=== PATIENT | female | born 1985 | race Caucasian/White ===

== ENCOUNTER 2020-08-24 11:48 | Emergency (ER) | payer BC ==
[2020-08-24 12:53] LABS: BASO % 0.4 % (0-2.0); EOS % 2.6 % (0-4.5); HEMATOCRIT 25.3 % (32.4-45.2); HEMOGLOBIN 8.2 GM/dl (10.7-15.3); LYMPH % 16.4 % (8-40); MCH 25.2 pg (25.7-33.7); MCHC 32.6 g/dl (32.0-36.0); MEAN CELL VOLUME 77.4 fl (80-96); MEAN PLT VOLUME 10.1 fl (7.5-11.1); MONO % 4.7 % (3.8-10.2); NEUT % 75.9 % (42.8-82.8); PLATELET COUNT 290 K/MM3 (134-434); RBC 3.27 M/mm3 (3.60-5.2); RDW 15.8 % (11.6-15.6); WHITE BLOOD COUNT 10.1 K/mm3 (4.0-10.8)
[2020-08-24 12:59] VITALS: TEMP 100.1; BMI 36.3
[2020-08-24 13:08] LABS: ACTIVATED PTT 23.9 SECONDS (25.2-36.5)
[2020-08-24 13:09] LABS: ALBUMIN 3.7 g/dl (3.4-5.0); BILIRUBIN,TOTAL 0.4 mg/dl (0.2-1); CALCIUM 8.8 mg/dl (8.5-10); CREATININE 0.7 mg/dl (0.55-1.3); POTASSIUM 3.6 mmol/L (3.5-5.1); TOT PROT 6.8 g/dl (6.4-8.2)
[2020-08-24 13:13] LABS: INR 1.03 (0.82-1.09); PROTHROMBIN TIME (PATIENT) 11.5 SEC (10.2-13.0)
[2020-08-24 15:11] LABS: PLATELET ESTIMATE ADEQUATE
[2020-08-24 17:57] VITALS: BP 135/84; PULSE 88
[2020-08-24] MEDS ORDERED: ACETAMINOPHEN 325 MG TABLET (FP) PO ONE (18:32)
[2020-08-24] MEDS ORDERED: AZITHROMYCIN 250 MG TABLET PO ONE ×2 (19:01→19:02)
[2020-08-24] MEDS ORDERED: AZITHROMYCIN 250 MG TABLET ONE (19:08)
== END 2020-08-24 19:15 | disposition home or self-care (01) ==
LOC: FER 11:48
DX: R06.02 Shortness of breath (principal); R07.1 Chest pain on breathing
CPT/HCPCS: 36415; 71046-TC-FY; 71275-TC; 80053; 82550; 84484; 84703; 85025; 85379; 85610; 85730; 93005; 99285-25; C9803; Q9967; U0003

== ENCOUNTER 2021-03-16 15:31 | Emergency (ER) | payer BC ==
[2021-03-16 15:50] VITALS: BP 112/71; PULSE 98; TEMP 99.2; BMI 35.5
== END 2021-03-16 17:31 | disposition home or self-care (01) ==
LOC: FER 15:31
DX: M67.823 Other specified disorders of tendon, right elbow (principal)
CPT/HCPCS: 73070-TC-RT-FY; 99283-25

== ENCOUNTER 2021-07-17 17:36 | Inpatient (IN) | payer BC ==
[2021-07-17 18:59] LABS: MONO % 7.3 % (3.8-10.2)
[2021-07-17 19:23] LABS: RBC 3.75 M/mm3 (3.60-5.2); WHITE BLOOD COUNT 8.2 K/mm3 (4.0-10.8)
[2021-07-17 19:24] LABS: HEMATOCRIT 29.3 % (32.4-45.2); HEMOGLOBIN 9.6 GM/dl (10.7-15.3); MCH 25.6 pg (25.7-33.7); MCHC 33.1 g/dl (32.0-36.0); MEAN CELL VOLUME 77.4 fl (80-96)
[2021-07-17 19:25] LABS: LYMPH % 19.3 % (8-40); MEAN PLT VOLUME 10.3 fl (7.5-11.1); NEUT % 68.9 % (42.8-82.8); RDW 13.8 % (11.6-15.6)
[2021-07-17 19:26] LABS: BASO % 0.7 % (0-2.0); EOS % 3.8 % (0-4.5)
[2021-07-17 19:34] LABS: EPITHELIAL CELLS FEW /hpf
[2021-07-17 19:40] LABS: ALBUMIN 3.8 g/dl (3.4-5.0); CALCIUM 8.8 mg/dl (8.5-10); CREATININE 0.7 mg/dl (0.55-1.3); TOT PROT 7.2 g/dl (6.4-8.2)
[2021-07-17] MEDS ORDERED: VANCOMYCIN 1 GM in D5W (PRE-DOCKED) 1,000 MG/250 ML IVPB ONE (20:58)
[2021-07-17] MEDS ORDERED: VANCOMYCIN 1,000 MG VIAL (RESTRICTED TO ID ONLY) ONE (20:59)
[2021-07-17] MEDS ORDERED: POLYETHYLENE GLYCOL (HEALTHYLAX) 3350 17 GM PACKET PO PRN (21:40)
[2021-07-17 23:19] LABS: PLATELET ESTIMATE ADEQUATE
[2021-07-17 23:54] VITALS: BMI 37.2
[2021-07-18] MEDS ORDERED: ZOLPIDEM TARTRATE 5 MG TABLET PO PRN (00:09)
[2021-07-18] MEDS ORDERED: ALBUTEROL SO4 HFA INHALER IH PRN (00:23)
[2021-07-18] MEDS ORDERED: POTASSIUM CHLORIDE TABS 20 MEQ TABLET.ER (FP) PO ONE (00:29)
[2021-07-18] MEDS ORDERED: ACETAMINOPHEN 1000 MG/100 ML VIAL (NON FORMULARY) IVPB PRN (00:42)
[2021-07-18] MEDS ORDERED: VANCOMYCIN PREMIX 1.5 GM 1,500 MG/300 ML BAG IVPB SCH ×4 (09:00→11:00)
[2021-07-18 09:36] LABS: HEMATOCRIT 29.1 % (32.4-45.2); HEMOGLOBIN 9.5 GM/dl (10.7-15.3); MCH 25.5 pg (25.7-33.7); MCHC 32.8 g/dl (32.0-36.0); MEAN CELL VOLUME 77.8 fl (80-96); MEAN PLT VOLUME 11.1 fl (7.5-11.1); RBC 3.74 M/mm3 (3.60-5.2); RDW 13.7 % (11.6-15.6); WHITE BLOOD COUNT 7.1 K/mm3 (4.0-10.8)
[2021-07-18 09:37] LABS: EOS % 1.4 % (0-4.5); LYMPH % 16.7 % (8-40); NEUT % 74.9 % (42.8-82.8)
[2021-07-18] MEDS ORDERED: FUROSEMIDE 20 MG TABLET (FP) PO SCH (10:00)
[2021-07-18] MEDS ORDERED: ENOXAPARIN NA (PORCINE) 40 MG/0.4 ML DISP.SYRIN SQ SCH (10:00)
[2021-07-18] MEDS ORDERED: HYDROCHLOROTHIAZIDE 12.5 MG CAPSULE (FP) PO SCH (10:00)
[2021-07-18] MEDS ORDERED: FLUoxetine HCL 20 MG CAPSULE PO SCH (10:00)
[2021-07-18 10:12] VITALS: BP 120/75; PULSE 64; TEMP 98.3
[2021-07-18 10:14] LABS: CREATININE 0.5 mg/dl (0.55-1.3)
[2021-07-18 10:15] LABS: CALCIUM 8.7 mg/dl (8.5-10)
[2021-07-18] MEDS ORDERED: LACTOBACILLUS ACIDOPHILUS 1 TABLET PO ONE (12:00)
[2021-07-18 15:36] LABS: PLATELET ESTIMATE ADEQUATE
[2021-07-18] MEDS ORDERED: OXcarbazepine 300 MG TABLET (UD) PO SCH (22:00)
[2021-07-19] MEDS ORDERED: VANCOMYCIN PREMIX 1.5 GM 1,500 MG/300 ML BAG IVPB SCH (09:00)
== END 2021-07-18 12:36 | disposition home or self-care (01) | DRG 603 ==
LOC: FER 17:36 → FM/S 22:59 → OBSVTOIN 22:59
PROVIDERS: ADMIT Internal Medicine; ATTEND Nurse Practitioner Acute Care
DX: L03.116 Cellulitis of left lower limb (principal); M79.605 Pain in left leg; M79.604 Pain in right leg; J45.909 Unspecified asthma, uncomplicated; F32.9 Major depressive disorder, single episode, unspecified; F90.9 Attention-deficit hyperactivity disorder, unspecified type; R55 Syncope and collapse; E87.6 Hypokalemia; G47.00 Insomnia, unspecified
CPT/HCPCS: 36415; 80048; 80053; 81003; 81015; 84703; 85025; 87040; 93971-TC; 99285-25; C9803; U0003; U0005

== ENCOUNTER 2023-03-01 09:06 | Observation (INO) | payer BC, OTHER ==
[2023-03-01] MEDS ORDERED: ACETAMINOPHEN 1000 MG/100 ML BAG IVPB ONE (09:15)
[2023-03-01] MEDS ORDERED: ONDANSETRON 4 MG/2 ML VIAL IVPUSH ONE (09:15)
[2023-03-01] MEDS ORDERED: SODIUM CHLORIDE 0.9% 1000 ML INFUS.BAG IV ONE (09:15)
[2023-03-01] MEDS ORDERED: FAMOTIDINE 20 MG/50 ML IVPB 20 MG/50 ML MG IVPB ONE ×2 (09:16→09:33)
[2023-03-01] MEDS ORDERED: ACETAMINOPHEN INJECTION 100 ML IVPB ONE (09:33)
[2023-03-01] MEDS ORDERED: ONDANSETRON 4 MG/2 ML VIAL ONE (09:33)
[2023-03-01 10:18] LABS: HEMATOCRIT 21.4 % (32.4-45.2); HEMOGLOBIN 6.7 G/dL (10.7-15.3); MCHC 31.2 g/dl (32.0-36.0); MEAN CELL VOLUME 62.5 fl (80-96); MEAN PLT VOLUME 9.8 fl (7.5-11.1); PLATELET COUNT 475.2 10^3/uL (134-434); RBC 3.42 10^6/uL (3.60-5.2); RDW 20.8 % (11.6-15.6)
[2023-03-01 10:27] LABS: ALBUMIN 4.1 g/dl (3.4-5.0); BILIRUBIN,TOTAL 0.4 mg/dl (0.2-1); CALCIUM 9.8 mg/dl (8.5-10); CREATININE 0.8 mg/dl (0.55-1.3); MAGNESIUM 1.4 mg/dL (1.8-2.4); POTASSIUM 3.3 mmol/L (3.5-5.1); TOT PROT 7.7 g/dl (6.4-8.2)
[2023-03-01 10:29] LABS: MCH 19.5 pg (25.7-33.7)
[2023-03-01] MEDS ORDERED: MAGNESIUM SULF 50% (8.12 MEQ/2 ML-1 GM VIAL) IVPB ONE (10:46)
[2023-03-01] MEDS ORDERED: LORazepam 2 MG/ML SDV VIAL IVPUSH ONE ×2 (10:50→14:30)
[2023-03-01] MEDS ORDERED: KCL 10 MEQ IVPB 10 MEQ/100 ML INFUS.BAG IVPB ONE (10:57)
[2023-03-01] MEDS ORDERED: MAGNESIUM 1GM/D5W - 1 GM/100 ML IVPB IVPB ONE (10:57)
[2023-03-01 13:26] LABS: INR 1.29 (0.83-1.09); PROTHROMBIN TIME (PATIENT) 14.9 SEC (9.7-13.0)
[2023-03-01] MEDS: SODIUM CHLORIDE 1,000 ML IV SCH (14:05)
[2023-03-01] MEDS ORDERED: ACETAMINOPHEN 1000 MG/100 ML BAG IVPB PRN (14:30)
[2023-03-01 16:56] VITALS: BMI 30.9
[2023-03-01 18:01] LABS: IRON SERUM 14 ug/dL (50-175); TOTAL IRON BINDING CAPACITY 507 ug/dL (250-450)
[2023-03-01] MEDS ORDERED: MELATONIN 5 MG TABLETS PO PRN (20:11)
[2023-03-01] MEDS ORDERED: IBUPROFEN 800 MG/8 ML IJ IVPB ONE (20:14)
[2023-03-01] MEDS: traZODone HCL 100 MG TABLET (FP) PO SCH (22:08)
[2023-03-02] MEDS: METOCLOPRAMIDE HCL INJECTION 10 MG/2 ML VIAL IVPUSH PRN ×3 (06:09→21:37)
[2023-03-02 08:34] LABS: ALBUMIN 3.6 g/dl (3.4-5.0); BILIRUBIN,TOTAL 0.4 mg/dl (0.2-1); CALCIUM 8.8 mg/dl (8.5-10); CREATININE 0.9 mg/dl (0.55-1.3); MAGNESIUM 1.9 mg/dL (1.8-2.4); PHOSPHOROUS 3.5 mg/dl (2.5-4.9); POTASSIUM 3.5 mmol/L (3.5-5.1); TOT PROT 6.7 g/dl (6.4-8.2)
[2023-03-02 09:56] LABS: HEMATOCRIT 22.6 % (32.4-45.2); HEMOGLOBIN 7.4 GM/dL (10.7-15.3); MCH 20.9 pg (25.7-33.7); MCHC 32.7 g/dl (32.0-36.0); MEAN PLT VOLUME 9.7 fl (7.5-11.1); PLATELET COUNT 361 10^3/uL (134-434); RBC 3.53 M/mm3 (3.60-5.2); RDW 23.2 % (11.6-15.6); WHITE BLOOD COUNT 10.7 K/mm3 (4.0-10.0)
[2023-03-02] MEDS: ONDANSETRON 4 MG/2 ML VIAL IVPUSH SCH ×2 (10:05→16:13)
[2023-03-02] MEDS: FLUoxetine HCL 20 MG CAPSULE PO SCH (10:05)
[2023-03-02] MEDS: ARIPiprazole 2 MG TABLET PO SCH (10:05)
[2023-03-02] MEDS: OXcarbazepine 300 MG TABLET (UD) PO SCH ×2 (10:05→21:51)
[2023-03-02 11:09] LABS: ANISOCYTOSIS 2+; MACROCYTOSIS 0; OVALOCYTE 2+; TEAR DROP CELLS 1+
[2023-03-02] MEDS: SODIUM CHLORIDE 1,000 ML IV SCH (15:54)
[2023-03-02] MEDS: traZODone HCL 100 MG TABLET (FP) PO SCH (21:46)
[2023-03-02] MEDS ORDERED: ACETAMINOPHEN 1000 MG/100 ML BAG IVPB PRN (22:03)
[2023-03-02 23:45] LABS: EPITHELIAL CELLS FEW /hpf
[2023-03-03] MEDS ORDERED: KCL 10 MEQ IVPB 10 MEQ/100 ML INFUS.BAG IVPB SCH (00:30)
[2023-03-03] MEDS: ONDANSETRON 4 MG/2 ML VIAL IVPUSH SCH ×3 (08:17→19:21)
[2023-03-03 08:37] LABS: ALBUMIN 3.2 g/dl (3.4-5.0); BILIRUBIN,TOTAL 0.3 mg/dl (0.2-1); CALCIUM 8.5 mg/dl (8.5-10); CREATININE 0.8 mg/dl (0.55-1.3); MAGNESIUM 1.7 mg/dL (1.8-2.4); PHOSPHOROUS 3.7 mg/dl (2.5-4.9); POTASSIUM 2.9 mmol/L (3.5-5.1); TOT PROT 6.1 g/dl (6.4-8.2)
[2023-03-03] MEDS ORDERED: MAGNESIUM 2GM/50ML STERILE WATER IVPB IVPB ONE (08:50)
[2023-03-03] MEDS: ARIPiprazole 2 MG TABLET PO SCH ×2 (10:30→10:39)
[2023-03-03] MEDS: FLUoxetine HCL 20 MG CAPSULE PO SCH (10:31)
[2023-03-03] MEDS: KCL 10 MEQ IVPB 10 MEQ/100 ML INFUS.BAG IVPB SCH ×3 (10:31→15:16)
[2023-03-03] MEDS: OXcarbazepine 300 MG TABLET (UD) PO SCH ×3 (10:32→21:38)
[2023-03-03 10:53] LABS: HEMATOCRIT 21.5 % (32.4-45.2); HEMOGLOBIN 7.1 GM/dL (10.7-15.3); MCH 20.8 pg (25.7-33.7); MCHC 33.1 g/dl (32.0-36.0); MEAN CELL VOLUME 62.7 fl (80-96); MEAN PLT VOLUME 9.3 fl (7.5-11.1); PLATELET COUNT 341 10^3/uL (134-434); RBC 3.42 M/mm3 (3.60-5.2); RDW 21.4 % (11.6-15.6); WHITE BLOOD COUNT 8.3 K/mm3 (4.0-10.0)
[2023-03-03 11:20] LABS: ANISOCYTOSIS 3+; MACROCYTOSIS 0
[2023-03-03] MEDS: METOCLOPRAMIDE HCL INJECTION 10 MG/2 ML VIAL IVPUSH PRN (12:03)
[2023-03-03] MEDS: SODIUM CHLORIDE 1,000 ML IV SCH (17:23)
[2023-03-03] MEDS: traZODone HCL 100 MG TABLET (FP) PO SCH (21:37)
[2023-03-03 22:38] LABS: CALCIUM 8.6 mg/dl (8.5-10); CREATININE 0.7 mg/dl (0.55-1.3)
[2023-03-04] MEDS: KCL 10 MEQ IVPB 10 MEQ/100 ML INFUS.BAG IVPB SCH ×3 (00:48→01:31)
[2023-03-04] MEDS: ONDANSETRON 4 MG/2 ML VIAL IVPUSH SCH ×2 (01:30→09:44)
[2023-03-04] MEDS: SODIUM CHLORIDE 1,000 ML IV SCH (09:43)
[2023-03-04] MEDS: OXcarbazepine 300 MG TABLET (UD) PO SCH (09:45)
[2023-03-04] MEDS: FLUoxetine HCL 20 MG CAPSULE PO SCH (09:45)
[2023-03-04] MEDS: ARIPiprazole 2 MG TABLET PO SCH (09:46)
[2023-03-04 09:51] VITALS: BP 111/68; PULSE 84; RESP 19; TEMP 98.9
== END 2023-03-04 13:01 | disposition home or self-care (01) ==
LOC: FER 09:06 → FM/S 13:56
PROVIDERS: ADMIT Internal Medicine; ATTEND Internal Medicine
PROC: 3E033NZ Introduction of Analgesics, Hypnotics, Sedatives into Peripheral Vein, Percutaneous Approach (ICD-10-PCS; principal; 2023-03-01)
PROC: 3E033GC Introduction of Other Therapeutic Substance into Peripheral Vein, Percutaneous Approach (ICD-10-PCS; 2023-03-01)
PROC: 3E0337Z Introduction of Electrolytic and Water Balance Substance into Peripheral Vein, Percutaneous Approach (ICD-10-PCS; 2023-03-01)
DX: R11.2 Nausea with vomiting, unspecified (principal); R19.7 Diarrhea, unspecified; E87.6 Hypokalemia; J45.909 Unspecified asthma, uncomplicated; F31.9 Bipolar disorder, unspecified; N92.0 Excessive and frequent menstruation with regular cycle; F98.8 Other specified behavioral and emotional disorders with onset usually occurring in childhood and adolescence
CPT/HCPCS: 0241U-QW; 36415; 36430; 71045-TC-FY; 74177-TC; 80048; 80053; 81003; 81015; 82272; 82306; 82607; 82728; 82746; 82962; 83540; 83550; 83735; 84100; 84702; 84703; 85025; 85027; 85610; 86850; 86900; 86901; 86922; 87254; 93005; 96365; 96368; 96375; 96376; 99285-25; G0378; P9038; P9058; Q9967